=== PATIENT | female | born 1940 ===

== ENCOUNTER 2018-09-12 10:48 | Emergency (ER) | payer MEDICARE, OTHER ==
[~2018-09-12] VITALS: Ht 152.4 cm; Wt 60.0 kg
[2018-09-12] MEDS ORDERED: TRAMADOL HYDROC50 MG PO (11:51)
[2018-09-12 12:06] VITALS: BP 146/83
== END 2018-09-12 12:06 | disposition home or self-care (01) ==
LOC: ED 10:48
DX: S09.90XA Unspecified injury of head, initial encounter (principal); S00.03XA Contusion of scalp, initial encounter; S01.81XA Laceration without foreign body of other part of head, initial encounter; R42 Dizziness and giddiness; W01.0XXA Fall on same level from slipping, tripping and stumbling without subsequent striking against object, initial encounter; Y92.009 Unspecified place in unspecified non-institutional (private) residence as the place of occurrence of the external cause

== ENCOUNTER 2018-09-14 20:22 | Emergency (ER) | payer MEDICARE, OTHER ==
[~2018-09-14] VITALS: Ht 152.4 cm; Wt 68.0 kg
[~2018-09-14 20:22] MED LIST: TRAMADOL HYDROC50 MG PO
[2018-09-14] MEDS ORDERED: KEFLEX500 M1 PO (20:56)
[2018-09-14] MEDS ORDERED: METOPROL TAR25 MG PO (21:03)
[2018-09-14] MEDS ORDERED: LOSARTAN POTASS50 MG PO (21:03)
[2018-09-14] MEDS ORDERED: PRAVASTATIN SOD40 MG PO (21:05)
[2018-09-14] MEDS ORDERED: ASPIRIN 81 LOW81 MG PO (21:06)
[2018-09-14] MEDS ORDERED: NITROGLYCER0.4 MG SL (21:08)
[2018-09-14] MEDS ORDERED: ISOSORB MONO20 MG PO (21:12)
[2018-09-14 21:28] VITALS: BP 156/73
== END 2018-09-14 21:28 | disposition home or self-care (01) ==
LOC: ED 20:22
DX: L03.213 Periorbital cellulitis (principal); S05.11XD Contusion of eyeball and orbital tissues, right eye, subsequent encounter; S00.211D Abrasion of right eyelid and periocular area, subsequent encounter; W19.XXXD Unspecified fall, subsequent encounter; I10 Essential (primary) hypertension; Z95.5 Presence of coronary angioplasty implant and graft

== ENCOUNTER → 2018-09-15 | Outpatient (REF) | payer MEDICARE, OTHER ==
[~2018-09-15] MED LIST changes: +ASPIRIN 81 LOW81 MG PO; +ISOSORB MONO20 MG PO; +KEFLEX500 M1 PO; +LOSARTAN POTASS50 MG PO; +METOPROL TAR25 MG PO; +NITROGLYCER0.4 MG SL; +PRAVASTATIN SOD40 MG PO
== END | disposition home or self-care (01) ==
LOC: CT 14:33
PROVIDERS: ATTEND Physician Assistant
DX: S09.90XD Unspecified injury of head, subsequent encounter (principal)